=== PATIENT | female | born 1975 | race Caucasian/White ===

== ENCOUNTER → 2020-08-02 16:04 | Outpatient (CLI) | payer OTHER, SELFPAY ==
--- NOTE | ~2020-08-02 | MM_ITS ---
EXAMINATION: MM screening [facility] BI w bhavesh HISTORY: Screening mammogram TECHNIQUE: Craniocaudal and mediolateral oblique 3-D tomosynthesis images were obtained and synthetic 2-D images were generated. Bilateral rotated lateral cc views. CAD analysis was submitted and interp reted. COMPARISON: 01/16/2019, 12/13/2017, 11/14/2012 bilateral digital screening mammogram examinations BREAST PARENCHYMAL COMPOSITION: The breasts are heterogeneously dense, which may obscure small masses . FINDINGS: Subtle grouped microcalcifications are noted anteriorly in the upper outer right breast. Ma gnification views are recommended. There is asymmetry in the upper and lower aspect of the right luanne st on MLO view. Cone compression views are recommended.. Otherwise there is no evidence of suspicious mass, calcification, or architectural distortion to sugg est malignancy in either breast. There has been no other suspicious interval change. IMPRESSION: 1. Microcalcifications in anterior upper outer right breast and asymmetric upper and lower MLO opacit ies 2. Diagnostic right mammogram is recommended, with ultrasound if required. BI-RADS Category 0: Incomplete: Needs additional imaging evaluation. Reviewed, dictated and finalized at location A. IMPRESSION: 1. Microcalcifications in anterior upper outer right breast and asymmetric uppe r and lower MLO opacities 2. Diagnostic right mammogram is recommended, with ultrasound if required. BI-RADS Category 0: Incomplete: Needs additional imaging evaluation.
== END ==
PROVIDERS: PCP Physician Assistant; Visit Provider Nurse Practitioner
DX: Z12.31 Encounter for screening mammogram for malignant neoplasm of breast (principal); R92.8 Other abnormal and inconclusive findings on diagnostic imaging of breast
CPT/HCPCS: 77063; 77067

== ENCOUNTER → 2020-08-27 07:48 | Outpatient (CLI) | payer OTHER, SELFPAY ==
--- NOTE | ~2020-08-27 | MMUS_ITS ---
EXAMINATION: MM diagnostic mammo unilat RT, US breast RT complete HISTORY: Follow-up right breast asymmetry and calcifications TECHNIQUE: Additional 3-D tomosynthesis images of the right breast were performed and synthetic 2-D i mages were generated. CAD analysis was submitted and interpreted. High resolution complete right luanne st ultrasound was performed. COMPARISON: 08/02/2020 BREAST PARENCHYMAL COMPOSITION: The breasts are heterogenously dense, which may obscure small masses. FINDINGS: MAMMOGRAPHIC FINDINGS: There are no suspicious calcifications or architectural distortion with spot compression or mediolate ral views. There are a cluster of monomorphic punctate calcifications in the upper outer quadrant of the right breast, likely benign. ULTRASOUND: Complete right breast ultrasound including all 4 quadrants in the subareolar location: In the subareo lar location there is a 7 mm cyst. No suspicious solid masses to suggest malignancy. IMPRESSION: 1. Probable benign right breast calcifications. 2. Recommend 6 month follow-up diagnostic right mammogram BI-RADS category 3, probably benign findings. Reviewed, dictated and finalized at location A. IMPRESSION: 1. Probable benign right breast calcifications. 2. Recommend 6 month follow-up diagnostic right mammogram BI-RADS category 3, probably benign findings.
== END ==
PROVIDERS: PCP Physician Assistant; Visit Provider Obstetrics & Gynecology Gynecology
DX: R92.8 Other abnormal and inconclusive findings on diagnostic imaging of breast (principal)
CPT/HCPCS: 76641; 77065

== ENCOUNTER → 2021-03-03 08:50 | Outpatient (CLI) | payer OTHER, SELFPAY ==
--- NOTE | ~2021-03-03 | MMUS_ITS ---
EXAMINATION: MM diagnostic nasir RT w bhavesh, US breast RT limited HISTORY: Six-month follow-up for probably benign right breast calcifications TECHNIQUE: Craniocaudal, mediolateral, and mediolateral oblique 3-D tomosynthesis images of the right breast were performed and synthetic 2-D images were generated. Magnification views are also obtained . CAD analysis was submitted and interpreted. High resolution limited right breast ultrasound was per formed. COMPARISON: 08/27/2020, 08/12/2020, 01/16/2019 BREAST PARENCHYMAL COMPOSITION: The breasts are heterogeneously dense, which may obscure small masses . FINDINGS: MAMMOGRAPHIC FINDINGS: There are unchanged calcifications in the anterior/middle third of the upper outer quadrant of the br east at the 10:00 location 3.5 cm from the nipple which appear to be predominantly round in morpholog y. There is a possible mass in the posterior third of the central breast 5.5 cm from the nipple. ULTRASOUND: There is no evidence of focal abnormal solid or cystic mass in the vicinity of the questionable mammo graphic mass. A 4 mm cyst is noted at the 10:00 location 3 cm from the nipple. IMPRESSION: 1. Probably benign right breast calcifications and right breast mass. 2. Recommend 6 month follow-up right diagnostic mammogram and possible ultrasound. BI-RADS category 3, probably benign findings. Reviewed, dictated and finalized at location B. P [employer] IMPRESSION: 1. Probably benign right breast calcifications and right breast mass. 2. Recommend 6 month follow-up right diagnostic mammogram and possible ultrasou nd. BI-RADS category 3, probably benign findings.
== END ==
PROVIDERS: PCP Physician Assistant; Visit Provider Obstetrics & Gynecology Gynecology
DX: R92.8 Other abnormal and inconclusive findings on diagnostic imaging of breast (principal)
CPT/HCPCS: 76642; 77061; 77065; G0279

== ENCOUNTER → 2021-09-15 07:51 | Outpatient (CLI) | payer OTHER, SELFPAY ==
--- NOTE | ~2021-09-15 | MM_ITS ---
EXAMINATION: MM diagnostic nasir BI w bhavesh HISTORY: Six-month follow-up of right breast; screening of left breast TECHNIQUE: Bilateral ML, MLO and CC full field and right spot ML and CC 3-D tomosynthesis images were performed and synthetic 2-D images were generated. Magnification views of right breast in ML, MLO an d CC projections. CAD analysis was submitted and interpreted. COMPARISON: 03/13/2021 and 08/2020 diagnostic right mammogram and limited right breast /, 01/16/2019, 12/13/2017bilateral screening mammogram examinations BREAST PARENCHYMAL COMPOSITION: The breasts are heterogeneously dense, which may obscure small masses . FINDINGS: There are scattered bilateral benign microcalcifications. No malignant features are identif ied. No suspicious mass or architectural distortion or significant new or developing density of either rosario ast is detected. IMPRESSION: 1. No mammographic evidence of malignancy 2. Routine annual mammographic screening is recommended. BI-RADS Category 2: Benign finding(s). Reviewed, dictated and finalized at location A.
== END ==
PROVIDERS: PCP Physician Assistant; Visit Provider Obstetrics & Gynecology Gynecology
DX: N63.10 Unspecified lump in the right breast, unspecified quadrant (principal); R92.8 Other abnormal and inconclusive findings on diagnostic imaging of breast
CPT/HCPCS: 77062; 77066; G0279

== ENCOUNTER → 2022-09-18 15:55 | Outpatient (CLI) | payer OTHER, SELFPAY ==
--- NOTE | ~2022-09-18 | MM_ITS ---
EXAMINATION: MM screening [facility] BI w bhavesh HISTORY: Screening mammogram TECHNIQUE: Craniocaudal and mediolateral oblique 3-D tomosynthesis images were obtained and synthetic 2-D images were generated. CAD analysis was submitted and interpreted. COMPARISON: 09/15/2021, 08/02/2020, 01/16/2019 BREAST PARENCHYMAL COMPOSITION:The breasts are heterogeneously dense, which may obscure small masses. FINDINGS: No suspicious mass, calcification, or architectural distortion are identified in either rosario ast to suggest malignancy. There has been no suspicious interval change. IMPRESSION: No mammographic evidence of malignancy. Recommend routine screening mammography in one year. BI-RADS Category 1: Negative Reviewed, dictated and finalized at location .
== END ==
PROVIDERS: PCP Physician Assistant; Visit Provider Obstetrics & Gynecology Gynecology
DX: Z12.31 Encounter for screening mammogram for malignant neoplasm of breast (principal)
CPT/HCPCS: 77063; 77067

== ENCOUNTER 2023-10-23 07:46 | Outpatient (CLI) | payer BC, SELFPAY ==
--- NOTE | ~2023-10-23 | MM_ITS ---
EXAMINATION: MM screening nasir BI w bhavesh HISTORY: Screening mammogram, family history of breast cancer in her mother. TECHNIQUE: Craniocaudal and mediolateral oblique 3-D tomosynthesis images were obtained and synthetic 2-D images were generated. CAD analysis was submitted and interpreted. COMPARISON: 09/18/2022, 09/15/2021, 03/03/2021 BREAST PARENCHYMAL COMPOSITION:Dense: The breasts are heterogeneously dense, which may obscure small masses. FINDINGS: No suspicious mass, calcification, or architectural distortion are identified in either rosario ast to suggest malignancy. There has been no suspicious interval change. IMPRESSION: No mammographic evidence of malignancy. Recommend routine screening mammography in one year. BI-RADS Category 1: Negative Reviewed, dictated and finalized at location .
== END 2023-10-23 07:47 ==
PROVIDERS: PCP Obstetrics & Gynecology Gynecology; Visit Provider Nurse Practitioner
DX: Z12.31 Encounter for screening mammogram for malignant neoplasm of breast (principal)
CPT/HCPCS: 77063; 77067

== ENCOUNTER 2024-10-21 07:42 | Outpatient (CLI) | payer BC, SELFPAY ==
--- NOTE | ~2024-10-21 | MM_ITS ---
EXAMINATION: MM screening nasir BI w bhavesh HISTORY: Screening mammogram, family history of breast cancer in her mother. TECHNIQUE: Craniocaudal and mediolateral oblique 3-D tomosynthesis images were obtained and synthetic 2-D images were generated. CAD analysis was submitted and interpreted. COMPARISON: 10/23/2023, 262, 09/15/2021 BREAST PARENCHYMAL COMPOSITION:Not Dense. There are scattered areas of fibroglandular density. FINDINGS: No suspicious mass, calcification, or architectural distortion are identified in either rosario ast to suggest malignancy. There has been no suspicious interval change. IMPRESSION: No mammographic evidence of malignancy. Recommend routine screening mammography in one year. BI-RADS Category 1: Negative Reviewed, dictated and finalized at location .
== END 2024-10-21 07:43 | disposition home or self-care (01) ==
LOC: MICIMG 07:44
PROVIDERS: PCP Physician Assistant; Visit Provider Obstetrics & Gynecology Gynecology
DX: Z12.31 Encounter for screening mammogram for malignant neoplasm of breast (principal)
CPT/HCPCS: 77063; 77067